=== PATIENT | female | born 1985 | race Two or more races ===

== ENCOUNTER 2021-09-14 13:28 | Inpatient (IN) | payer OTHER ==
[~2021-09-14] VITALS: Ht 175.3 cm; Wt 65.8 kg
[2021-09-21] MEDS ORDERED: MULTIPLE VITAM1 EAC2 PO (08:22)
[2021-09-21] MEDS ORDERED: IRON236 MG PO (08:23)
[2021-09-22] MEDS ORDERED: INTEGRA PLUS C1 EAC1 (07:55)
== END 2021-09-25 11:08 | disposition home or self-care (01) | DRG 743 ==
LOC: O/R 09-22 05:00 → SURH 09-22 07:00 → OB/GYN 09-22 15:24
PROVIDERS: Specialist; ADMIT Obstetrics & Gynecology; ATTEND Obstetrics & Gynecology
PROC: 0W0F0ZZ Alteration of Abdominal Wall, Open Approach (ICD-10-PCS; 2021-09-22)
PROC: 0J083ZZ Alteration of Abdomen Subcutaneous Tissue and Fascia, Percutaneous Approach (ICD-10-PCS; 2021-09-22)
PROC: 0UT90ZZ Resection of Uterus, Open Approach (ICD-10-PCS; principal; 2021-09-22 07:00)
PROC: 0UT70ZZ Resection of Bilateral Fallopian Tubes, Open Approach (ICD-10-PCS; 2021-09-22 07:00)
DX: D25.2 Subserosal leiomyoma of uterus (principal); E65 Localized adiposity; N72 Inflammatory disease of cervix uteri; N83.8 Other noninflammatory disorders of ovary, fallopian tube and broad ligament; N93.8 Other specified abnormal uterine and vaginal bleeding; D50.0 Iron deficiency anemia secondary to blood loss (chronic); N94.6 Dysmenorrhea, unspecified; J45.909 Unspecified asthma, uncomplicated